=== PATIENT | female | born 1935 | race Caucasian/White ===

== ENCOUNTER → 2021-05-02 | Outpatient (CLI) | payer MEDICARE, BC ==
--- NOTE | 2021-05-02 09:53 | CARD ---
MR#: [id number] Date of Study: 05/02/2021 Ordering Physician: ANNIE FROST, Referring Physician: ANNIE FROST Tech: Judson Moncada [facility] APPROVED REPORT EXAM: Two-dimensional and M-mode echocardiogram with Doppler and color Doppler. Other Information Quality : AverageHR: 82bpm Rhythm : Atrial Fibrillation INDICATION Dyspnea Hypertension/HCVD 2D DIMENSIONS Left Atrium(2D)4.3 (1.6-4.0cm)IVSd0.9 (0.7-1.1cm) Aortic Root(2D)2.9 (2.0-3.7cm)LVDd4.3 (3.9-5.9cm) LVOT Diameter1.8 (1.8-2.4cm)PWd1.0 (0.7-1.1cm) LVDs3.0 (2.5-4.0cm)FS (%) 30.5 % SV47.6 mlLVEF(%)58.3 (>50%) Aortic Valve AoV Peak Franklin.138.7cm/sAoV VTI26.5cm AO Peak GR.7.7mmHgLVOT Peak Franklin.87.0cm/s LVOT VTI 18.26cmAO Mean GR.4mmHg ARTUR (VMAX)1.81rg4VCO (VTI)1.85cm2 Mitral Valve MV E Yxianwmu78.7cm/sMV DECEL [id number] MV E Mean Gr.2mmHgMV ADA91gi MVA (PHT)4.39cm2 TDI E/Lateral E'11.0E/Medial E'10.4 Pulmonary Valve PV Peak Piqzbwhh91.0cm/sPV Peak Grad.2mmHg Tricuspid Valve TR P. Wqdwwrrg051cw/sTR Peak Gr.23mmHg LEFT VENTRICLE The left ventricle is normal size. There is normal left ventricular wall thickness. The left ventricu lar systolic function is normal and the ejection fraction is within normal range. EF 55% There is nor mal LV segmental wall motion. Tissue Doppler imaging reveals moderate left ventricular diastolic dysf unction. No left ventricle thrombus noted on this study. There is no ventricular septal defect visual ized. There is no left ventricular aneurysm. There is no mass noted in the left ventricle. RIGHT VENTRICLE The right ventricle is normal size. There is normal right ventricular wall thickness. The right ventr icular systolic function is normal. There is a pacemaker lead in the RA/RV. ATRIA The left atrium is moderately dilated. The right atrium is mildly dilated. The interatrial septum is intact with no evidence for an atrial septal defect or patent foramen ovale as noted on 2-D or Dopple r imaging. AORTIC VALVE The aortic valve is calcified but opens well. Doppler and Color Flow revealed no significant aortic r egurgitation. There is no significant aortic valvular stenosis. There is no aortic valvular vegetatio n. MITRAL VALVE The mitral valve is normal in structure and function. There is no evidence of mitral valve prolapse. There is no mitral valve stenosis. Doppler and Color-flow revealed mild mitral regurgitation. TRICUSPID VALVE The tricuspid valve is normal in structure and function. Doppler and Color Flow revealed mild to mode rate tricuspid regurgitation. The PA pressure was estimated at 29 mmHg. There is no tricuspid valve p rolapse or vegetation. There is no tricuspid valve stenosis. PULMONIC VALVE Trivial pulmonic regurgitation There is no pulmonic valvular stenosis. GREAT VESSELS The aortic root is normal in size. The ascending aorta is normal in size. The IVC is normal in size a nd collapses >50% with inspiration. PERICARDIAL EFFUSION There is no pleural effusion. There is no evidence of significant pericardial effusion. Critical Notification Critical Value: No <Conclusion> The left ventricular systolic function is normal and the ejection fraction is within normal range. EF 55% There is normal LV segmental wall motion. Doppler and Color Flow revealed mild to moderate tricuspid regurgitation. The PA pressure was estimat ed at 29 mmHg. Signed by : Arpit Macario, Electronically Approved : 05/02/2021 09:53:06
== END ==
LOC: ECHO 07:49
PROVIDERS: ATTEND Family Medicine
DX: I08.8 Other rheumatic multiple valve diseases (principal); I10 Essential (primary) hypertension
CPT/HCPCS: 93306